=== PATIENT | female | born 1995 | race Caucasian/White ===

== ENCOUNTER 2020-04-28 10:35 | Outpatient (CLI) | payer OTHER, SELFPAY ==
[2020-04-28 12:03] LABS: Hemoglobin 11.1 g/dL (12.0-15.0); Mean Corpuscular HGB Conc 33.6 g/dl (32-36); Mean Corpuscular Hemoglobin 31.3 pg (26-34); Mean Platelet Volume 11.4 fl (7.4-10.4); Platelet Count Result 173 k/mm3 (150-375); Red Blood Count 3.55 M/mm3 (4.2-5.4); Red Cell Distribution Width 13.3 % (11.5-14.5); White Blood Count 13.3 K/mm3 (4.5-10.0)
[2020-04-28 12:18] LABS: Glucose 1 Hour PP 50gm Dose 103 mg/dL
[2020-04-28 12:30] LABS: Band Neutrophils Percent 4 % (0-6); Eosinophils Absolute Manual 0.13 K/mm3 (0.02-0.5); Eosinophils Percent Manual 1 % (0-4); Lymphocytes Absolute Manual 2.12 K/mm3 (1.1-4.5); Monocytes Absolute Manual 0.53 K/mm3 (0.1-0.90); Monocytes Percent Manual 4 % (3-9); Neutrophils Percent Manual 75 % (46-73); Platelet Estimate Adequate (Adequate); Total Cells Counted 100
[2020-04-28 13:31] LABS: Hepatitis C Virus Antibody Negative (Negative)
[2020-04-29 08:13] LABS: Rapid Plasma Reagin Non-Reactive (NonReactive)
== END 2020-04-28 10:36 | disposition home or self-care (01) ==
PROVIDERS: Referring Provider Obstetrics & Gynecology; Visit Provider Obstetrics & Gynecology
DX: Z34.90 Encounter for supervision of normal pregnancy, unspecified, unspecified trimester (principal)
CPT/HCPCS: 36415; 82947; 85025; 86592; 86803

== ENCOUNTER 2020-05-16 09:57 | Outpatient (CLI) | payer OTHER, SELFPAY ==
[2020-05-16 11:19] LABS: HIV 1/2 Ab P24 Ag Result Negative (Negative)
== END 2020-05-16 09:58 | disposition home or self-care (01) ==
LOC: ANHLAB 09:58
PROVIDERS: Visit Provider Obstetrics & Gynecology
DX: Z34.90 Encounter for supervision of normal pregnancy, unspecified, unspecified trimester (principal)
CPT/HCPCS: 36415; 86703; G0432

== ENCOUNTER 2020-06-03 13:45 | Outpatient (RCR) | payer OTHER, SELFPAY ==
--- NOTE | ~2020-06-03 | US_ITS ---
EXAMINATION: US OB limited EXAM DATE: 06/03/2020 14:31 INDICATION: Decreased baseline movement. 3rd trimester. TECHNIQUE: Pelvic obstetrical transabdominal sonogram was performed by a technologist. There are mu ltiple grayscale and Doppler images available for interpretation. There are no earlier studies of th is gestation for comparison. FINDINGS: There is a single fetus identified in vertex presentation with a heart rate of 124 beats pe r minute. The placenta is located in the anterior position. There is no sonographic evidence of retr oplacental hemorrhage identified. AMNIOTIC FLUID INDEX Quadrant 1: 2.7 cm Quadrant 2: 2.2 cm Quadrant 3: 0 cm Quadrant 4: 0 cm Amniotic fluid index: 4.9 cm. (The 5th -- 95th percentile range is 7.2-22.6). IMPRESSION: 1. Single fetus in vertex presentation with heart rate 124 beats per minute. 2. Oligohydramnios, ROSENDO 4.9 cm. I discussed abnormal ROSENDO with [place] caring for patient, stated would notify John Alfred MD. P mike call on 06/03/2020 14:38 CDT. Reviewed, dictated and finalized at location A. IMPRESSION: 1. Single fetus in vertex presentation with heart rate 124 beats per minute. 2. Oligohydramnios, ROSENDO 4.9 cm. I discussed abnormal ROSENDO with [place] caring for patient, stated would notify Puma Alfred MD. Phone call on 06/03/2020 14:38 CDT.
[2020-06-03 14:14] VITALS: BP 108/67; PULSE 90
== END 2020-07-04 10:08 | disposition home or self-care (01) ==
LOC: ANHOBOP 13:45
PROVIDERS: Visit Provider Obstetrics & Gynecology
DX: O41.03X0 Oligohydramnios, third trimester, not applicable or unspecified (principal); O36.8330 Maternal care for abnormalities of the fetal heart rate or rhythm, third trimester, not applicable or unspecified; Z3A.38 38 weeks gestation of pregnancy
CPT/HCPCS: 59025; 76815

== ENCOUNTER 2020-06-03 18:11 | Inpatient (IN) | payer OTHER, SELFPAY ==
[2020-06-03] VITALS (23 sets, daily range): BP systolic 97–120; BP diastolic 64–96; PULSE 69–95; TEMP 36.8–36.9; BMI 32.1
--- NOTE | 2020-06-03 18:44 | P.PNAN_ITS ---
Anes - Eval Pre Procedure Procedure: labor epidural Date/Time: 06/03/20 18:44 Surgeon: annika Pre Op Diagnosis: Induction of Labor Patient Data Age: 24 Gender: F Height: Weight: Last Vital Signs Pulse 95 06/03/20 18:30 BP 110/71 06/03/20 18:30 Allergies Allergy/AdvReac Type Severity Reaction Status Date / Time No Known Allergies Allergy Verified 06/03/20 13:14 Home Medications Medication Instructions Recorded Confirmed Type cholecalciferol (vitamin D3) 1,250 1,250 mcg PO WEEKLY 04/03/20 05/22/20 History mcg (50,000 unit) capsule folic acid 1 mg tablet 1 mg PO DAILY 04/03/20 05/22/20 History prenat.vits,jennie,auq-hyhq-sjoxt 1 tablet PO DAILY 04/03/20 05/22/20 History Patient hx anesthesia problems: none Family hx anesthesia problems: none PMFSH Social History Social History Years smoked: 11 Smoking status: Current every day smoker Tobacco type: cigarettes Alcohol intake: never Substance use: never Substance use type: marijuana Spiritual care concerns: No Exam Day of Procedure 06/03/20 18:44
--- NOTE | 2020-06-03 18:46 | PM.IMHP ---
H&P: HPI History of Present Illness Date/Time: 06/03/20 18:46 Chief complaint: Induction of Labor Narrative: Delores Browning is a 24 year old female at 38 1/7 weeks by EDC of 06/16/21 based on LMP 09/10/19 consistent with 17 week ultrasound. She presented for routine OB visit today and baseline was lower that previous or variable. She was sent to L and D for NST/ROSENDO. tracing reassuring. Baseline 140. Cat 1. ROSENDO 4.9. She was recommended for induction of labor due to oligohydramnios. She was scheduled for ultrasound for tomorrow for EFW due to size less than dates. PNC signficant for history of tobacco abuse. She did decrease during from pre- amount. History of heterozygous for MTHFR-test was done on her routine new OB labs with prior provider. No history of blood clots. Pos UDS at prior office NOB pos for THC. MSAFP-neg, second trimester ultrasound normal. She has satisfied parity and is desiring sterilization after recovery. Labs: A pos, ab neg, h/h12/37,Plt-221, RPR nr, Ur cx, neg HBsag-neg,GC/CHL-/-, Varicella-Im, Rub,IM, Hgbelec- AA, pap-nl, HPV neg, NIPT-male, neg, TSH neg, GBS neg, nl gluc, HIV RPR neg. Review of Systems Review of Systems: All systems reviewed & are unremarkable except as noted in HPI and below Constitutional: Constitutional: Reports no additional constitutional complaints and Denies headache(s) Eyes: Eyes: Denies spots in vision ENT: Reports system reviewed and no additional complaints, except as documented and Denies headache(s) Cardiovascular: Cardiovascular: Denies chest pain and Denies dyspnea Respiratory: Respiratory: Denies dyspnea Gastrointestinal: Gastrointestinal: Reports no additional gastrointestinal complaints Genitourinary: Genitourinary: Reports amenorrhea Musculoskeletal: Musculoskeletal: Reports no additional musculoskeletal complaints Integumentary/Breasts: Skin/Breast: Denies breast mass and Denies rash Neurologic: Denies headache(s) Psychiatric: Psychiatric: Reports no additional psychiatric complaints [facility] Past Medical History Medical History Acid reflux Pelvic pain Surgical History Surgical History History of tonsillectomy Family History Family History Mother Chronic obstructive pulmonary disease Brain tumor Social History Social History Years smoked: 11 Smoking status: Current every day smoker Tobacco type: cigarettes Alcohol intake: never Substance use: never Substance use type: marijuana Spiritual care concerns: No Meds Home Medications and Allergies Home Medications Medication Instructions Recorded Confirmed Type cholecalciferol (vitamin D3) 1,250 1,250 mcg PO WEEKLY 04/03/20 05/22/20 History mcg (50,000 unit) capsule folic acid 1 mg tablet 1 mg PO DAILY 04/03/20 05/22/20 History prenat.vits,jennie,bxb-obfw-cjjne 1 tablet PO DAILY 04/03/20 05/22/20 History Allergies Allergy/AdvReac Type Severity Reaction Status Date / Time No Known Allergies Allergy Verified 06/03/20 13:14 Vital Signs Vital Signs - 24 hr 06/03/20 18:23 06/03/20 18:30 06/03/20 18:46 Pulse Rate 87 95 78 Blood Pressure 117/85 110/71 112/66 Exam Const: General: no acute distress Eyes: General: appearance normal, both eyes and all related structures Resp: Effort & Inspection: normal respiratory effort Cardio: Rate: regular rate GI: Other: Gravid no fundal tenderness no right upper quadrant pain : External Female Exam: normal external appearance Manual OB Exam: dilated 2 cm, effaced 50% and station high (-3) Skin: General skin exam: no rashes or lesions noted Extrem: General: normal to inspection Assessment and Plan Assessment and plan (1) Oligohydramnios: Code(s): O
[2020-06-03 19:22] LABS: Hematocrit 31.9 % (37.0-47.0); Hemoglobin 10.8 g/dL (12.0-15.0); Mean Corpuscular HGB Conc 33.9 g/dl (32-36); Mean Corpuscular Volume 94.4 fl (80-100); Platelet Count Result 175 k/mm3 (150-375); Red Blood Count 3.38 M/mm3 (4.2-5.4); Red Cell Distribution Width 13.6 % (11.5-14.5); White Blood Count 13.6 K/mm3 (4.5-10.0)
[2020-06-03] MEDS: OXYTOCIN 30 UNITS/NS 500 ML 30 UNITS/500 ML BAG IV CONT (19:26)
[2020-06-03] MEDS: LACTATED RINGERS 1,000 ML 125 ML IV CONT (19:26)
[2020-06-03 19:34] LABS: Band Neutrophils Percent 7 % (0-6); Lymphocytes Absolute Manual 2.72 K/mm3 (1.1-4.5); Lymphocytes Percent Manual 20 % (18-44); Metamyelocytes Percent 1 %; Monocytes Absolute Manual 0.81 K/mm3 (0.1-0.90); Monocytes Percent Manual 6 % (3-9); Neutrophils Absolute Manual 9.92 K/mm3 (1.7-7.2); Neutrophils Percent Manual 66 % (46-73); Platelet Estimate Adequate (Adequate); Total Cells Counted 100
--- NOTE | 2020-06-03 19:34 | LDADM ---
This patient, Delores Browning, was admitted to Labor/Delivery/Recovery 106 on 06/03/20 at 18:11. Plans for labor, pain management and were discussed with patient. Patient/family oriented to hospital policies and general routines including ID bracelet, bed and alarms, visiting hours, pain management, procedures, bathroom and other care routines, personal items, smoking policy, room service/diet and guest tray routines, security routines, and visiting hours. Patient/Family are encouraged to report perceived risks to care and to ask questions if they do not understand what they are told or what they should do. See OBIX for further documentation.
[2020-06-04] VITALS (137 sets, daily range): BP systolic 92–144; BP diastolic 47–111; PULSE 65–140; RESP 18–20; TEMP 36.4–36.9; O2SAT 85–100
[2020-06-04 01:29] LABS: Amphetamine Screen Urine Negative (Negative); Barbiturate Screen Urine Negative (Negative); Benzodiazepines Screen Urine Negative (Negative); Cannabinoid Screen Urine Positive (Negative); Cocaine Screen Urine Negative (Negative); Methadone Screen Urine Negative (Negative); Opiate Screen Urine Negative (Negative); Phencyclidine Screen Urine Negative (Negative)
[2020-06-04] MEDS: LACTATED RINGERS 1,000 ML 125 ML IV CONT ×3 (07:03→14:00)
[2020-06-04 07:21] LABS: Rapid Plasma Reagin Non-Reactive (NonReactive)
--- NOTE | 2020-06-04 07:31 | PM.OBPNVD ---
OB - PN: Subj Subjective Date/time seen: 06/04/20 07:31 FHT 130 Cat1, ctx q 2, mild, 2.5/50/-2, AROM small amount clear fluid. Continue Pitocin. OB - PN: Obj Data Labs CBC & Chem 7: 06/03/20 19:14 Labs: Laboratory Results - last 24 hr 06/03/20 06/03/20 06/03/20 19:14 19:14 19:14 WBC 13.6 H RBC 3.38 L Hgb 10.8 L Hct 31.9 L MCV 94.4 MCH 32.0 MCHC 33.9 RDW 13.6 Plt Count 175 MPV 12.0 H Immature Gran % (Auto) Not Reportable Neut % (Auto) Not Reportable Lymph % (Auto) Not Reportable [place] % (Auto) Not Reportable Eos % (Auto) Not Reportable Baso % (Auto) Not Reportable Lymph # (Auto) Not Reportable [place] # (Auto) Not Reportable Eos # (Auto) Not Reportable Baso # (Auto) Not Reportable Abs Immat Gran (auto) Not Reportable Absolute Neuts (auto) Not Reportable Absolute Nucleated RBC Not Reportable Total Counted 100 Neutrophils % (Manual) 66 Band Neutrophils % 7 H Lymphocytes % (Manual) 20 Monocytes % (Manual) 6 Metamyelocytes % 1 Nucleated RBC % Not Reportable Abs Neuts (Manual) 9.92 H Abs Lymphs (Manual) 2.72 Abs Monocytes (Manual) 0.81 Platelet Estimate Adequate Urine Opiates Screen Urine Methadone Screen Ur Barbiturates Screen Ur Phencyclidine Scrn Ur Amphetamine Screen U Benzodiazepines Scrn Urine Cocaine Screen U Cannabinoids Screen RPR Non-reactive Blood Type A Positive Antibody Screen Negative 06/04/20 00:59 WBC RBC Hgb Hct MCV MCH MCHC RDW Plt Count MPV Immature Gran % (Auto) Neut % (Auto) Lymph % (Auto) [place] % (Auto) Eos % (Auto) Baso % (Auto) Lymph # (Auto) [place] # (Auto) Eos # (Auto) Baso # (Auto) Abs Immat Gran (auto) Absolute Neuts (auto) Absolute Nucleated RBC Total Counted Neutrophils % (Manual) Band Neutrophils % Lymphocytes % (Manual) Monocytes % (Manual) Metamyelocytes % Nucleated RBC % Abs Neuts (Manual) Abs Lymphs (Manual) Abs Monocytes (Manual) Platelet Estimate Urine Opiates Screen Negative Urine Methadone Screen Negative Ur Barbiturates Screen Negative Ur Phencyclidine Scrn Negative Ur Amphetamine Screen Negative U Benzodiazepines Scrn Negative Urine Cocaine Screen Negative U Cannabinoids Screen Positive A RPR Blood Type Antibody Screen OB - PN A/P Time Spent With Patient Time: Total time spent is greater than 50% in coordination of care (as documented) at patient's floor/unit and/or counseling patient:
[2020-06-04] MEDS: OXYTOCIN 30 UNITS/NS 500 ML 30 UNITS/500 ML BAG 125 UNITS IV CONT (15:27)
--- NOTE | 2020-06-04 15:46 | P.PCNOB_ITS ---
OB - Delivery Note Procedure Delivery date: 06/04/20 Procedure: She was admitted for induction of labor due to oligohydramnios. She was started on Pitocin. She has mild irregular contractions on evening of 06/03. tracing reassuring. Had occasiona variables. She had AROM on morning of 06/04. Small amount of clear fluid. She started having stronger and more regular contractions. She requested epidural. She progressed to complete. She pushed with approximately 4 contractions. There was heart tones to 70s prior to last contraction and she pushed and delivered a male infant. Tight nuchal cord. Surgically reduced. Terminal meconium noted. was crying and placed on maternal abdomen. events: Oligohydramnios Induction method: per pitocin protocol Delivery augmentation: rupture of membranes Delivery monitor: external FHT Laceration description: None Specimen: Yes (placenta and cord) Estimated blood loss (mL): 150 Anesthesia type: Epidural Disposition: floor [place] Baby Date of : 06/04/20 Time of : 14:55 Weeks of gestation at delivery: 38 gender: Male Weight (pounds): 7 Weight (ounces): 7 presentation: vertex position: Left Occiput Anterior Placenta delivery description: Spontaneous cord vessel description: Nuchal Cord and Tight (surgically reduced) score one minute: 8 score five minutes: 9
[2020-06-04] MEDS: WITCH HAZEL 40 PADS 1 PAD TOPICAL (16:43)
[2020-06-04] MEDS: BENZOCAINE 20% AER SPR (*SP) 56 GM CAN 1 SPRAY TOPICAL (16:43)
--- NOTE | 2020-06-04 18:23 | PC.NURSE ---
Patient transferred to post room #282 via wheelchair. Support person present. Oriented to unit, room, information board, rooming in, admission packet and security measures. Patient verbalizes understanding.
[2020-06-04] MEDS: IBUPROFEN 600 MG TABLET PO (20:37)
[2020-06-05 05:29] LABS: Hematocrit 32.2 % (37.0-47.0); Hemoglobin 10.7 g/dL (12.0-15.0)
[2020-06-05 08:20] VITALS: BP 117/84; PULSE 77; RESP 18; TEMP 36.7; O2SAT 99
--- NOTE | 2020-06-05 09:35 | WPDANLDPN2 ---
Anes-Prog Note L&D Date/Time: 06/05/20 09:35 Comfortable throughout: labor and delivery Neuraxial method: epidural Epidural/Spinal procedure site: clean & non-tender Neuro status: Neuro function grossly intact. Cardiovascular status: normal Respiratory status: normal Airway patency: baseline Mental status: baseline Post-Op hydration status: normal Vital Signs: Last Vital Signs Temp 36.7 C 06/05/20 08:20 Pulse 77 06/05/20 08:20 Resp 18 06/05/20 08:20 BP 117/84 06/05/20 08:20 Pulse Ox 99 06/05/20 08:20 Pain score (VAS): 09/14 I/O: Intake & Output 06/04/20 06/05/20 06/05/20 23:59 07:59 15:59 Output Total 100 Balance -100 Post-procedural complaints: none Patient feedback: Patient satisfied with anesthetic care.
--- NOTE | 2020-06-05 10:49 | PM.OBPNVD ---
OB - PN: Subj Subjective Date/time seen: 06/05/20 10:49 Patient comments: pain well controlled, tolerating diet and other (Decreasing lochia.) baby status: doing well and nursing well [place] feeding status: exclusively bottle feeding OB - PN: Obj Data Labs CBC & Chem 7: 06/05/20 04:38 Labs: Laboratory Results - last 24 hr 06/05/20 04:38 Hgb 10.7 L Hct 32.2 L OB - PN A/P Plan day: 1 Plan: routine care Comments: Patient doing well. She desires to go home. Discussed instructions. Time Spent With Patient Time: Total time spent is greater than 50% in coordination of care (as documented) at patient's floor/unit and/or counseling patient: Exam Psych: Affect: normal affect Other: Abd: fundus firm below umbilicus, nontender Perineum: healing Ext: nontender
--- NOTE | 2020-06-05 13:55 | P.DS_ITS ---
DS: Admitting Diagnosis Admitting Diagnosis Admitting Diagnosis: 1. Oligohydramnios\ 2..Induction of Labor DS: Discharge Diagnosis Discharge Diagnosis (1) Oligohydramnios: Code(s): O41.00X0 - Oligohydramnios, unspecified trimester, not applicable or unspecified Status: Acute OB - DS: Summary OB Procedures : Other OB Procedures Intrapartum: Spontaneous Vag Delivery OB Procedures: : None Time Spent with Patient Time attestation: Total time spent providing and/or coordinating discharge services: Exam Const: General: comfortable and no acute distress Eyes: General: appearance normal, both eyes and all related structures Resp: Effort & Inspection: normal respiratory effort GI: Other: uterus palpable below umbilicus nontender : External Female Exam: normal external appearance Extrem: Other: nontender DS: Data Data Completed and Pending Pending studies at discharge: Pending at discharge 06/04/20 14:58 Surgical [PTH] Routine Labs on day of discharge: Labs from last 24 hours 06/05/20 04:38 Hgb 10.7 L Hct 32.2 L Discharge Plan Discharge Attending physician on discharge: John Alfred Consulting providers: Srinivas Jeong Discharging Clinician: John Alfred Anticipated Discharge Date/Time: 06/05/20 13:51 Patient Disposition: Home, Self-Care Activity: pelvic rest Diet: regular Discharge Instructions: Pelvic rest for four to six weeks. Call for fever >100.4, saturating more than a pad an hour, leg redness, pain, swelling. Take PNV daily. Patient Instructions: Antibiotic Form Stand Alone Forms: General Discharge Information Follow-up/Referrals: John Alfred MD [Physician] - 4 Weeks Discharge Medications: Continued folic acid 1 mg tablet 1 mg PO DAILY RF: 0 cholecalciferol (vitamin D3) 1,250 mcg (50,000 unit) capsule 1,250 mcg PO WEEKLY RF: 0 prenat.vits,jennie,liw-lwmf-nvqyz Tablet 1 tablet PO DAILY RF: 0 Date of admission: 06/03/20 18:11 Primary Care Provider: PHYSICIAN,CLINICAL REHABILITATION COORDINATOR Admitting Provider: John Alfred Attending physician on admission: John Alfred
[2020-06-05] MEDS: TETANUS,DIPHTHERIA,AC PERTUSSIS ADULT (0.5 ML) BOOSTRIX IM (17:11)
[2020-06-06 12:00] VITALS: BP 117/76; PULSE 73; RESP 14; TEMP 37; O2SAT 98
== END 2020-06-05 17:17 | disposition home or self-care (01) | DRG 560 ==
LOC: ANHLDR 18:44 → ANHOB2 06-04 17:33
PROVIDERS: Admitting Provider Obstetrics & Gynecology; Visit Provider Obstetrics & Gynecology
DX: O41.03X0 Oligohydramnios, third trimester, not applicable or unspecified (principal); Z37.0 Single live birth; Z3A.38 38 weeks gestation of pregnancy; O99.334 Smoking (tobacco) complicating childbirth; F17.210 Nicotine dependence, cigarettes, uncomplicated; O69.1XX0 Labor and delivery complicated by cord around neck, with compression, not applicable or unspecified; O77.0 Labor and delivery complicated by meconium in amniotic fluid; O36.8330 Maternal care for abnormalities of the fetal heart rate or rhythm, third trimester, not applicable or unspecified; O99.62 Diseases of the digestive system complicating childbirth; K21.9 Gastro-esophageal reflux disease without esophagitis; O99.324 Drug use complicating childbirth; F12.90 Cannabis use, unspecified, uncomplicated
CPT/HCPCS: 36415; 59025; 76815; 80307; 85014; 85018; 85025; 86592; 86850; 86900; 86901; 88307; 90715; A9270; J2590; J2795; J7120

== ENCOUNTER 2020-08-27 19:59 | Emergency (ER) | payer OTHER, SELFPAY ==
[2020-08-27 20:03] VITALS: BP 142/98; PULSE 106; RESP 14; TEMP 37; O2SAT 100
--- NOTE | 2020-08-27 20:34 | ED.GENADULT ---
HPI - General Adult General Chief complaint: Unspecified Stated complaint: Hemrrhoids Time Seen by Provider: 08/27/20 20:09 History of Present Illness HPI narrative: Patient is a 25-year-old female who presents to the ER with hemorrhoids to her bottom. She reports she had this issue when she was and they have reoccurred over the last few days. She has been using Tucks as well as Preparation H without relief. She has been constipated. Occasional bleeding. She has been using sitz baths every 2 hours. She is not breast-feeding. Related Data Home Medications Medication Instructions Recorded Confirmed cholecalciferol (vitamin D3) 1,250 1,250 mcg PO WEEKLY 04/03/20 08/10/20 mcg (50,000 unit) capsule folic acid 1 mg tablet 1 mg PO DAILY 04/03/20 08/10/20 prenat.vits,jennie,mjq-qxbr-tqnhi 1 tablet PO DAILY 04/03/20 08/10/20 Allergies Allergy/AdvReac Type Severity Reaction Status Date / Time No Known Allergies Allergy Verified 08/27/20 20:11 Review of Systems Constitutional: Constitutional: Denies chills and Denies fever(s) Gastrointestinal: Gastrointestinal: Denies abdominal pain, Reports constipation, Denies diarrhea and Denies nausea PMFSH Past Medical History Medical History (Updated 08/27/20 @ 20:38 by Stephan Méndez MD) Acid reflux Pelvic pain Surgical History Surgical History History of tonsillectomy Family History Family History Mother Chronic obstructive pulmonary disease Brain tumor Social History Social History Years smoked: 10 Smoking status: Current some day smoker Tobacco type: cigarettes Alcohol intake: never Substance use: never Substance use type: marijuana Spiritual care concerns: No Exam Narrative: Exam Narrative: GENERAL: Well-appearing, well-nourished, and in no acute distress. HEAD: Normocephalic, atraumatic. Rectal: 2 external hemorrhoids on the left side that have areas of ulceration. No active bleeding. No evidence of infection. EXTREMITIES: Normal range of motion. No edema. NEURO: Alert and oriented x3. PSYCH: Normal mood and affect. Course Course Emergency Course: Will prescribe Anusol as well as stool softeners. Recommend continuing with sitz bath's as well as Tucks pads. Vital Signs Vital signs: Vital Signs Temperature 98.6 F 08/27/20 20:03 Pulse Rate 106 H 08/27/20 20:03 Respiratory Rate 14 08/27/20 20:03 Blood Pressure 142/98 H 08/27/20 20:03 Pulse Oximetry 100 08/27/20 20:03 Temperature 98.6 F 08/27/20 20:03 Pulse Rate 106 H 08/27/20 20:03 Respiratory Rate 14 08/27/20 20:03 Blood Pressure 142/98 H 08/27/20 20:03 Pulse Oximetry 100 08/27/20 20:03 Medical Decision Making Vital Signs Vital Signs: Vital Signs Temperature 98.6 F 08/27/20 20:03 Pulse Rate 106 H 08/27/20 20:03 Respiratory Rate 14 08/27/20 20:03 Blood Pressure 142/98 H 08/27/20 20:03 Pulse Oximetry 100 08/27/20 20:03 Temperature 98.6 F 08/27/20 20:03 Pulse Rate 106 H 08/27/20 20:03 Respiratory Rate 14 08/27/20 20:03 Blood Pressure 142/98 H 08/27/20 20:03 Pulse Oximetry 100 08/27/20 20:03 Discharge Plan Discharge Clinical Impression: External hemorrhoid Patient Disposition: Home, Self-Care Condition: Stable Instructions: Hemorrhoids (ED) Additional Instructions: Continue to apply the Tucks pads and use the sitz bath's. We will also have you apply steroid cream and use stool softeners so that you are not straining to have bowel movement. Follow-up with general surgery if these are an issue as you may require banding. Prescriptions: New hydrocortisone [Anusol-HC] 2.5 % cream with perineal applicator 1 applic CO HS PRN (Reason: hemorrhoids) Qty: 30 RF: 0 docusate sodium [Colace] 100 mg capsule 100 mg
== END 2020-08-27 21:05 | disposition home or self-care (01) ==
PROVIDERS: Emergency Provider Emergency Medicine
DX: K64.4 Residual hemorrhoidal skin tags (principal); K21.9 Gastro-esophageal reflux disease without esophagitis; F17.210 Nicotine dependence, cigarettes, uncomplicated
CPT/HCPCS: 99283

== ENCOUNTER 2021-11-28 12:55 | Emergency (ER) | payer OTHER, SELFPAY ==
--- NOTE | ~2021-11-28 | US_ITS ---
EXAMINATION: US pelvic complete w TV DATE: 11/28/2021 14:21 INDICATION: Left lower quadrant abdominal and bilateral pelvic pain. TECHNIQUE: Multiple transabdominal and endovaginal sonographic images of the pelvis were obtained. COMPARISON: None. FINDINGS: The uterus measures 6.9 x 3.9 x 3.4 cm. The endometrial complex measures 3 mm in thickness. The righ t ovary measures 4.2 x 2.2 x 2.7 cm. The left ovary measures 5.5 x 2.0 x 1.8 cm. There are multiple s ubcentimeter anechoic cysts at both ovaries. Vascular flow identified with arterial waveforms in both the left and right ovaries. There is no free fluid in the pelvis. IMPRESSION: 1. Multiple subcentimeter anechoic cysts/follicles in both ovaries. Otherwise unremarkable pelvic ult rasound with arterial flow identified in both ovaries on color Doppler. Reviewed, dictated and finalized at location A. IMPRESSION: 1. Multiple subcentimeter anechoic cysts/follicles in both ovaries. Otherwise u nremarkable pelvic ultrasound with arterial flow identified in both ovaries on color Doppler.
--- NOTE | ~2021-11-28 | CT_ITS ---
EXAMINATION: CT abdomen pelvis w con EXAM DATE: 11/28/2021 15:45 INDICATION: LLQ, RLQ abdominal pain TECHNIQUE: Spiral CT of the abdomen and pelvis was performed following intravenous injection of 100 m L Omnipaque 350. Axial, coronal and sagittal images of the abdomen and pelvis were reviewed. The do se-length product (DLP) for this examination was 193.51 mGy-cm. The exposure was tailored according to patient size (auto mA exposure control), and iterative reconstruction (ASIR) was used as additiona l dose reduction technique. There is no prior study for comparison. FINDINGS: The liver, spleen, adrenal glands and pancreas are unremarkable. Gallbladder is unremarkab le. No biliary obstruction. Portal and splenic veins are patent. Kidneys enhance symmetrically. T here is no hydronephrosis. The uterus is retroverted and morphologically normal. The bladder is u nremarkable. There is no retroperitoneal or pelvic lymphadenopathy. The appendix is normal. The stomach and small bowel are unremarkable. There is expected amount of c olonic stool. No free intraperitoneal gas. The heart is normal in size. There are no pericardial or pleural effusions. The lung bases are unremarkable. There are no osteoblastic or osteolytic les ions identified. IMPRESSION: 1. No acute intra-abdominal findings. Reviewed, dictated and finalized at location G.
[2021-11-28 13:02] VITALS: BP 126/89; PULSE 89; RESP 16; TEMP 36.4; O2SAT 100
--- NOTE | 2021-11-28 13:18 | PC.NURSE ---
patient states that she had her normal period about 2 weeks ago, reports heavy dark red bleeding that started yesterday with clots. today only notice blood when wiping. denies vaginal discharge or need for STD checks. small knot in RLQ and a larger knot in the left groin area. 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
[2021-11-28 13:40] LABS: Basophils Absolute Auto 0.1 K/mm3 (0.0-0.1); Basophils Percent Auto 0.3 % (0.2-1.2); Eosinophils Absolute Auto 0.1 K/mm3 (0-0.3); Eosinophils Percent Auto 0.5 % (0-4.4); Hematocrit 40.3 % (37.0-47.0); Hemoglobin 13.1 g/dL (12.0-15.0); Immature Granulocyte Percent A 0.5 % (0-0.5); Lymphocytes Percent Auto 13.4 % (18.3-44.2); Mean Corpuscular HGB Conc 32.5 g/dl (32-36); Mean Corpuscular Hemoglobin 30.5 pg (26-34); Mean Corpuscular Volume 93.7 fl (80-100); Mean Platelet Volume 10.3 fl (7.4-10.4); Monocytes Absolute Auto 0.9 K/mm3 (0.1-0.6); Monocytes Percent Auto 4.5 % (2.6-8.5); Neutrophils Absolute Auto 15.7 K/mm3 (1.3-6.7); Neutrophils Percent Auto 80.8 % (45.5-73.1); Platelet Count Result 271 k/mm3 (150-375); Red Cell Distribution Width 13.2 % (11.5-14.5); White Blood Count 19.4 K/mm3 (4.5-10.0)
[2021-11-28 13:48] LABS: Lactic Acid Reflex 0.7 mmol/L (0.7-2.1)
[2021-11-28 13:49] LABS: Alanine Aminotransferase 16 U/L (4-35); Albumin Level 4.1 g/dL (3.5-5.1); Alkaline Phosphatase 80 U/L (38-126); Anion Gap 8 mmol/L (8-16); Aspartate Amino Transferase 23 U/L (14-36); Bilirubin,Total 0.4 mg/dL (0.2-1.3); Blood Urea Nitrogen 7 mg/dL (7-17); Calcium 8.7 mg/dL (8.4-10.2); Carbon Dioxide 25 mmol/L (22-30); Chloride 105 mmol/L (98-107); Estimated Glomerular Filt Rate > 60; Glucose 132 mg/dL (65-110); Potassium 3.4 mmol/L (3.4-5.0); Sodium 138 mmol/L (137-145)
--- NOTE | 2021-11-28 13:56 | ED.ABDPAIN ---
HPI - Abdominal Pain General Chief Complaint: Abdominal Pain Stated Complaint: abdominal pain Time Seen by Provider: 11/28/21 13:20 Source: patient History of Present Illness HPI narrative: 26-year-old female presenting to the emergency department for evaluation of lower abdominal pain. patient states about 2 days ago she began having left lower quadrant pain that she describes as acute in onset and was very intense. Patient states over the course of the last day the pain has since radiated to her right lower abdomen. Patient denies any associated nausea or vomiting. Patient denies any change in bowels habits. Patient states she has had bowel movements that did not affect the pain. Patient denies any prior surgical history on her abdomen. Patient does not think she is currently . Patient reports she did have a cyst on her cervix but denies any prior history of ovarian cyst. Patient declined any medications for pain control for nausea control at this time. Related Data Home Medications Medication Instructions Recorded Confirmed cholecalciferol (vitamin D3) 1,250 1,250 mcg PO WEEKLY 04/03/20 08/10/20 mcg (50,000 unit) capsule folic acid 1 mg tablet 1 mg PO DAILY 04/03/20 08/10/20 prenat.vits,jennie,ehj-sgfb-yjkqo 1 tablet PO DAILY 04/03/20 08/10/20 Allergies Allergy/AdvReac Type Severity Reaction Status Date / Time No Known Allergies Allergy Verified 11/28/21 13:17 Review of Systems Review of Systems: CONSTITUTIONAL: Denies fever, chills, or sweats. EYES: Denies visual changes, redness, or discharge. ENT: Denies rhinorrhea, congestion, sore throat, or otalgia. CARDIOVASCULAR: Denies chest pain, palpitations, or edema. RESPIRATORY: Denies cough or dyspnea. GASTROINTESTINAL: Left lower quadrant pain that has since radiated to her right lower quadrant GENITOURINARY: Denies dysuria or hematuria. SKIN: Denies rash or itching. MUSCULOSKELETAL: Denies back pain, joint pain, or myalgia. NEUROLOGIC: Denies headache, numbness, or weakness. PENDING SALE TO [facility] Past Medical History Medical History (Updated 11/28/21 @ 16:20 by Hua Robert MD) Acid reflux Pelvic pain Surgical History Surgical History History of tonsillectomy Family History Family History Mother Chronic obstructive pulmonary disease Brain tumor Social History Social History Years smoked: 10 Smoking status: Current some day smoker Tobacco type: cigarettes Alcohol intake: never Substance use: never Substance use type: marijuana Spiritual care concerns: No Exam Narrative: APPEARANCE: Well appearing, no pain, no distress, well-nourished. HEAD: normocephalic, atraumatic. EYES: PERRLA/EOMI, conjunctivae clear. NOSE: Normal no drainage NECK: Supple. No adenopathy, no masses. RESPIRATORY: Airway patent, respirations nonlabored. Clear to auscultation bilaterally, no rales, rhonchi, wheezing. CARDIOVASCULAR: Regular rate and rhythm without murmurs rubs or gallops. ABDOMINAL: Diffusely tender to the lower abdomen bilaterally. No rebound. No guarding. Normal bowel sounds. MUSCULOSKELETAL: Moves all extremities. Strength/ROM intact, No edema, No calf tenderness. NEURO: Alert. Cranial nerves II through XII intact. Grossly intact SKIN: Warm, dry. Normal Color Course Course Emergency Course: Ultrasound was ordered to rule out ovarian torsion due to the acute onset of the lower abdominal pain. Ultrasound did show some prominent follicles but no significant cysts and no torsion. UA was negative for acute infection. Urine culture is pending. Patient does have an elevated leukocytosis, a CT scan was ordered to rule out acute appendicitis. CT of abdomen/pelvis showed no acute abnormality. Patient was updated on the results of her imaging and labs. All questions and concerns w
[2021-11-28 14:29] LABS: Add Urine Microscopic? YES; Appearance Urine Cloudy (Clear); Bacteria Urine Trace /hpf; Bilirubin Urine Negative (Negative); Blood Urine 3+ (Negative); Color Urine Yellow (Yellow); Glucose Urine UA Negative (Negative); Ketones Urine Negative (Negative); Leukocyte Esterase Ur 1+ LEU/UL (Negative); Mucus Urine Rare /lpf; Nitrate Urine Negative (Negative); Protein Urine Negative (Negative); Specific Grav Ur 1.017 (1.001-1.035); Squamous Epithelial Cell Urine Few /hpf (Few); Urobilinogen Urine Negative mg/dL (<2.0); WBC Urine 0-3 /hpf
[2021-11-28 16:29] VITALS: BP 111/60; PULSE 89; RESP 16; TEMP 36.8; O2SAT 99
== END 2021-11-28 16:29 | disposition home or self-care (01) ==
PROVIDERS: Emergency Provider Emergency Medicine
DX: R10.31 Right lower quadrant pain (principal); R10.32 Left lower quadrant pain; K21.9 Gastro-esophageal reflux disease without esophagitis; F17.210 Nicotine dependence, cigarettes, uncomplicated; N83.202 Unspecified ovarian cyst, left side; N83.201 Unspecified ovarian cyst, right side
CPT/HCPCS: 36415; 74177; 76830; 76856; 80053; 81001; 81025; 83605; 85025; 99284; Q9967